=== PATIENT | female | born 1950 | race African-American/Black ===

== ENCOUNTER 2022-04-18 12:32 | Inpatient (IN) | payer MEDICARE, OTHER ==
[~2022-04-18] VITALS: Ht 165.1 cm; Wt 71.0 kg
[~2022-04-18 12:32] MED LIST: ARIP15TA27 PO; FLUO-177 PO; GABA-1181 PO; TRAZ-257 PO; VANC750V2 IV
[2022-04-18] MEDS ORDERED: ALBUTEROL SULFATE 2.5 MG/0.5 ML NEB SOLUTION NEB ONE (13:00)
[2022-04-18] MEDS ORDERED: IPRATROPIUM BROMIDE 0.5 MG/2.5 ML NEB SOLUTION NEB ONE (13:00)
[2022-04-18 13:23] LABS: COVID AG,FIA SOURCE NASAL SWAB
[2022-04-18 13:31] LABS: EOSINOPHILS % (AUTO) 0.2 % (1.0-6.0); HEMOGLOBIN 12.1 g/dL (12.0-16.0); LYMPHOCYTES % (AUTO) 21.2 % (22.0-44.0); MEAN CORPUSCULAR HEMOGLOBIN 24.1 pg (26.0-34.0); MEAN CORPUSCULAR HGB CONC 30.3 G/dL (31.0-37.0); MEAN CORPUSCULAR VOLUME 80 fL (80-100); MONOCYTES # (AUTO) 0.5 K/uL (0.1-1.0); MONOCYTES % (AUTO) 10.6 % (2.0-9.0); NEUTROPHILS # (AUTO) 3.1 K/uL (1.8-7.7); PLATELET COUNT (AUTO) 189 K/uL (150-450); RED BLOOD CELL COUNT(AUTO) 5.03 MIL/uL (4.00-5.20)
[2022-04-18 13:42] LABS: CALCIUM, TOTAL 8.8 mg/dL (8.8-10.5); CREATININE 2.61 mg/dL (0.60-1.30); POTASSIUM 5.3 mmol/L (3.5-5.1)
[2022-04-18 13:47] LABS: ALBUMIN 3.1 g/dL (3.4-5.0); BILIRUBIN,TOTAL 0.9 mg/dL (0.1-1.0); TOTAL PROTEIN, SERUM 6.8 g/dL (6.4-8.2)
[2022-04-18] MEDS ORDERED: SODIUM CHLORIDE 0.9% 1,000 ML IV ONE ×2 (15:00→16:30)
[2022-04-18] MEDS ORDERED: ONDANSETRON HCL 4 MG/2 ML VIAL IVP PRN ×2 (16:00→16:30)
[2022-04-18] MEDS ORDERED: ACETAMINOPHEN 325 MG TABLET PO PRN ×2 (16:00→16:30)
[2022-04-18] MEDS ORDERED: IPRATROPIUM BROMIDE 0.5 MG/2.5 ML NEB SOLUTION NEB PRN (16:30)
[2022-04-18] MEDS ORDERED: BISACODYL 10 MG RECTAL RECTAL SUPPOSITORY PR PRN (16:30)
[2022-04-18] MEDS ORDERED: ZOLPIDEM TARTRATE 5 MG TABLET PO PRN (16:30)
[2022-04-18] MEDS ORDERED: HYDROCODONE/ACETAMINOPHEN 5-325 MG TABLET PO PRN (16:30)
[2022-04-18] MEDS ORDERED: MORPHINE SULFATE 2 MG/ML SYRINGE IVP PRN (16:30)
[2022-04-18] MEDS ORDERED: MAGNESIUM HYDROXIDE SUSPENSION 30 ML UDCUP PO PRN (16:30)
[2022-04-18] MEDS ORDERED: ALBUTEROL SULFATE 2.5 MG/0.5 ML NEB SOLUTION NEB PRN (16:30)
[2022-04-18] MEDS: MethylPREDNISolone SOD SUCC 125 MG/2 ML VIAL IVP SCH ×2 (18:13→23:51)
[2022-04-18] MEDS: ALBUTEROL SULFATE 2.5 MG/0.5 ML NEB SOLUTION NEB SCH (20:00)
[2022-04-18] MEDS: IPRATROPIUM BROMIDE 0.5 MG/2.5 ML NEB SOLUTION NEB SCH (20:00)
[2022-04-18 21:17] VITALS: BP 131/74
[2022-04-18] MEDS: BENZONATATE 100 MG CAPSULE PO SCH (21:19)
[2022-04-18] MEDS: TraZODone HCL 100 MG TABLET PO SCH (21:20)
[2022-04-18] MEDS: DOCUSATE SODIUM 100 MG CAPSULE PO SCH (21:20)
[2022-04-18] MEDS: GuaiFENesin SR 600 MG ER TABLET PO SCH (21:20)
[2022-04-18] MEDS: HEPARIN SODIUM,PORCINE 5,000 UNITS/ML VIAL SQ SCH (23:52)
[2022-04-19] MEDS: IPRATROPIUM BROMIDE 0.5 MG/2.5 ML NEB SOLUTION NEB SCH ×4 (03:08→20:52)
[2022-04-19] MEDS: ALBUTEROL SULFATE 2.5 MG/0.5 ML NEB SOLUTION NEB SCH ×4 (03:08→20:52)
[2022-04-19 04:32] VITALS: BP 122/60
[2022-04-19] MEDS: MethylPREDNISolone SOD SUCC 125 MG/2 ML VIAL IVP SCH ×3 (06:16→17:54)
[2022-04-19 07:18] LABS: BASOPHILS % (AUTO) 0.2 % (0.0-2.0); EOSINOPHILS % (AUTO) 0 % (1.0-6.0); HEMATOCRIT 38.4 % (36-46); HEMOGLOBIN 11.4 g/dL (12.0-16.0); LYMPHOCYTES # (AUTO) 0.2 K/uL (1.0-4.8); LYMPHOCYTES % (AUTO) 7.2 % (22.0-44.0); MEAN CORPUSCULAR HEMOGLOBIN 23.3 pg (26.0-34.0); MEAN CORPUSCULAR HGB CONC 29.6 G/dL (31.0-37.0); MEAN CORPUSCULAR VOLUME 79 fL (80-100); NEUTROPHILS # (AUTO) 2.9 K/uL (1.8-7.7); PLATELET COUNT (AUTO) 187 K/uL (150-450); RED BLOOD CELL COUNT(AUTO) 4.88 MIL/uL (4.00-5.20)
[2022-04-19 07:42] LABS: CALCIUM, TOTAL 8.5 mg/dL (8.8-10.5); CREATININE 1.54 mg/dL (0.60-1.30); POTASSIUM 4.9 mmol/L (3.5-5.1)
[2022-04-19 07:43] LABS: NEUTROPHILS % (AUTO) 91.6 % (40.0-70.0)
[2022-04-19] MEDS: BENZONATATE 100 MG CAPSULE PO SCH ×3 (08:52→20:20)
[2022-04-19] MEDS: PANTOPRAZOLE SODIUM 40 MG DR TABLET PO SCH (08:52)
[2022-04-19] MEDS: DOCUSATE SODIUM 100 MG CAPSULE PO SCH ×2 (08:53→20:20)
[2022-04-19] MEDS: HEPARIN SODIUM,PORCINE 5,000 UNITS/ML VIAL SQ SCH ×3 (08:53→23:58)
[2022-04-19] MEDS: ARIPiprazole 15 MG TABLET PO SCH (08:53)
[2022-04-19] MEDS: FLUoxetine HCL 20 MG CAPSULE PO SCH (08:53)
[2022-04-19] MEDS: GuaiFENesin SR 600 MG ER TABLET PO SCH ×2 (08:53→20:20)
[2022-04-19] MEDS: GABAPENTIN 300 MG CAPSULE PO SCH (08:53)
[2022-04-19 09:26] VITALS: BP 100/56
[2022-04-19 16:54] VITALS: BP 127/98
[2022-04-19 19:48] VITALS: BP 110/70
[2022-04-19] MEDS: TraZODone HCL 100 MG TABLET PO SCH (20:20)
[2022-04-20] MEDS: IPRATROPIUM BROMIDE 0.5 MG/2.5 ML NEB SOLUTION NEB SCH ×4 (01:55→21:24)
[2022-04-20] MEDS: ALBUTEROL SULFATE 2.5 MG/0.5 ML NEB SOLUTION NEB SCH ×4 (01:55→21:24)
[2022-04-20 03:31] VITALS: BP 117/55
[2022-04-20] MEDS: MethylPREDNISolone SOD SUCC 125 MG/2 ML VIAL IVP SCH ×2 (06:13)
[2022-04-20 07:23] LABS: BASOPHILS % (AUTO) 0.1 % (0.0-2.0); EOSINOPHILS % (AUTO) 0 % (1.0-6.0); HEMATOCRIT 37.6 % (36-46); HEMOGLOBIN 11.3 g/dL (12.0-16.0); LYMPHOCYTES # (AUTO) 0.2 K/uL (1.0-4.8); LYMPHOCYTES % (AUTO) 2.2 % (22.0-44.0); MEAN CORPUSCULAR HEMOGLOBIN 23.8 pg (26.0-34.0); MEAN CORPUSCULAR HGB CONC 30.1 G/dL (31.0-37.0); MEAN CORPUSCULAR VOLUME 79 fL (80-100); MONOCYTES # (AUTO) 0.2 K/uL (0.1-1.0); MONOCYTES % (AUTO) 1.7 % (2.0-9.0); NEUTROPHILS # (AUTO) 10.3 K/uL (1.8-7.7); PLATELET COUNT (AUTO) 159 K/uL (150-450); RED BLOOD CELL COUNT(AUTO) 4.76 MIL/uL (4.00-5.20); RED CELL DISTRIBUTION WIDTH 21.5 % (11.5-14.5)
[2022-04-20 07:40] LABS: CALCIUM, TOTAL 8.5 mg/dL (8.8-10.5); CREATININE 1.15 mg/dL (0.60-1.30); POTASSIUM 4.6 mmol/L (3.5-5.1)
[2022-04-20 07:53] VITALS: BP 134/68
[2022-04-20] MEDS ORDERED: SODIUM CHLORIDE 0.9% 1,000 ML ONE (08:07)
[2022-04-20] MEDS: PANTOPRAZOLE SODIUM 40 MG DR TABLET PO SCH (08:14)
[2022-04-20] MEDS: ARIPiprazole 15 MG TABLET PO SCH (08:14)
[2022-04-20] MEDS: GABAPENTIN 300 MG CAPSULE PO SCH (08:14)
[2022-04-20] MEDS: FLUoxetine HCL 20 MG CAPSULE PO SCH (08:14)
[2022-04-20] MEDS: BENZONATATE 100 MG CAPSULE PO SCH ×3 (08:14→19:59)
[2022-04-20] MEDS: DOCUSATE SODIUM 100 MG CAPSULE PO SCH ×2 (08:14→19:59)
[2022-04-20] MEDS: GuaiFENesin SR 600 MG ER TABLET PO SCH ×2 (08:18→19:59)
[2022-04-20] MEDS: HEPARIN SODIUM,PORCINE 5,000 UNITS/ML VIAL SQ SCH ×2 (08:29→16:06)
[2022-04-20 15:23] VITALS: BP 134/62
[2022-04-20 17:06] LABS: GLUCOMETER DEV NAME(LOC) 6N.2B; GLUCOSE,POINT OF CARE 183 MG/DL (70-110)
[2022-04-20 18:20] LABS: COVID AG,FIA SOURCE NASAL SWAB
[2022-04-20] MEDS: TraZODone HCL 100 MG TABLET PO SCH (19:59)
[2022-04-20 20:06] LABS: GLUCOMETER DEV NAME(LOC) 6S.1B; GLUCOSE,POINT OF CARE 155 MG/DL (70-110)
[2022-04-20 21:30] VITALS: BP 120/58
[2022-04-21] MEDS: HEPARIN SODIUM,PORCINE 5,000 UNITS/ML VIAL SQ SCH ×2 (00:09→08:40)
[2022-04-21] MEDS: ALBUTEROL SULFATE 2.5 MG/0.5 ML NEB SOLUTION NEB SCH ×3 (02:45→13:34)
[2022-04-21] MEDS: IPRATROPIUM BROMIDE 0.5 MG/2.5 ML NEB SOLUTION NEB SCH ×3 (02:46→13:34)
[2022-04-21 04:39] VITALS: BP 117/59
[2022-04-21 07:35] LABS: EOSINOPHILS % (AUTO) 0.1 % (1.0-6.0); HEMATOCRIT 36.7 % (36-46); HEMOGLOBIN 11.1 g/dL (12.0-16.0); LYMPHOCYTES # (AUTO) 1.2 K/uL (1.0-4.8); LYMPHOCYTES % (AUTO) 12.4 % (22.0-44.0); MEAN CORPUSCULAR HEMOGLOBIN 23.9 pg (26.0-34.0); MEAN CORPUSCULAR HGB CONC 30.2 G/dL (31.0-37.0); MEAN CORPUSCULAR VOLUME 79 fL (80-100); MONOCYTES # (AUTO) 0.7 K/uL (0.1-1.0); MONOCYTES % (AUTO) 7.3 % (2.0-9.0); NEUTROPHILS # (AUTO) 7.5 K/uL (1.8-7.7); NEUTROPHILS % (AUTO) 80.2 % (40.0-70.0); PLATELET COUNT (AUTO) 137 K/uL (150-450); RED BLOOD CELL COUNT(AUTO) 4.64 MIL/uL (4.00-5.20); RED CELL DISTRIBUTION WIDTH 21.3 % (11.5-14.5)
[2022-04-21 07:42] LABS: ANION GAP 6 mmol/L (8-16); CALCIUM, TOTAL 8.4 mg/dL (8.8-10.5); CARBON DIOXIDE 27 mmol/L (22-29); CHLORIDE 113 mmol/L (98-107); CREATININE 0.94 mg/dL (0.60-1.30); GLOMERULAR FILTR. RATE CALC > 60 mL/min (>60); GLUCOSE,RANDOM 112 mg/dL (70-110); POTASSIUM 4.2 mmol/L (3.5-5.1); SODIUM SERUM 146 mmol/L (136-145); UREA NITROGEN, BLOOD 26 mg/dL (7-18)
[2022-04-21 08:02] VITALS: BP 118/55
[2022-04-21] MEDS: FLUoxetine HCL 20 MG CAPSULE PO SCH (08:40)
[2022-04-21] MEDS: PANTOPRAZOLE SODIUM 40 MG DR TABLET PO SCH (08:40)
[2022-04-21] MEDS: ARIPiprazole 15 MG TABLET PO SCH (08:40)
[2022-04-21] MEDS: GABAPENTIN 300 MG CAPSULE PO SCH (08:40)
[2022-04-21] MEDS: BENZONATATE 100 MG CAPSULE PO SCH (08:40)
[2022-04-21] MEDS: DOCUSATE SODIUM 100 MG CAPSULE PO SCH (08:40)
[2022-04-21] MEDS: GuaiFENesin SR 600 MG ER TABLET PO SCH (08:40)
[2022-04-21] MEDS ORDERED: BENZ-227 PO (12:57)
[2022-04-21] MEDS ORDERED: DOCU-385 PO (12:58)
[2022-04-21] MEDS ORDERED: GUAIF600 PO (12:58)
[2022-04-21] MEDS ORDERED: PANT-31 PO (12:59)
[2022-04-21] MEDS ORDERED: HEPA500018 SQ (12:59)
[2022-04-21] MEDS ORDERED: ACET-2247 PO (13:00)
[2022-04-21] MEDS ORDERED: AUD NEB ×2 (13:01→13:04)
[2022-04-21] MEDS ORDERED: BISA-151 PR (13:02)
[2022-04-21] MEDS ORDERED: MAGN-169 PO (13:02)
[2022-04-21 15:13] VITALS: BP 111/60
== END 2022-04-21 15:15 | DRG 682 ==
LOC: EMS 12:33 → AHU 15:56 → 6S 19:46
PROVIDERS: ADMIT Internal Medicine; ATTEND Internal Medicine
DX: N17.0 Acute kidney failure with tubular necrosis (principal); J96.21 Acute and chronic respiratory failure with hypoxia; E87.5 Hyperkalemia; J44.9 Chronic obstructive pulmonary disease, unspecified; Z20.822 Contact with and (suspected) exposure to COVID-19; W18.39XA Other fall on same level, initial encounter; R53.81 Other malaise; R77.8 Other specified abnormalities of plasma proteins; F20.9 Schizophrenia, unspecified; F32.A Depression, unspecified; E11.9 Type 2 diabetes mellitus without complications; E86.9 Volume depletion, unspecified; I10 Essential (primary) hypertension; Z99.81 Dependence on supplemental oxygen; Z79.899 Other long term (current) drug therapy; Y93.89 Activity, other specified; Y92.89 Other specified places as the place of occurrence of the external cause; Y99.8 Other external cause status
CPT/HCPCS: 70450; 71045; 80048; 80053; 82962; 84484; 85025; 93005; 94640; 97162; 97165; 97535; 99285; J1644; J2930; J7030; 36415-L1; 36415-TC; J7613